=== PATIENT | female | born 1985 | race Caucasian/White ===

== ENCOUNTER 2022-11-09 12:13 | Emergency (ER) | payer OTHER ==
[~2022-11-09] VITALS: Ht 162.6 cm; Wt 65.8 kg
== END 2022-11-09 14:20 | disposition home or self-care (01) ==
LOC: ER 12:13
DX: T67.09XA Other heatstroke and sunstroke, initial encounter (principal); X58.XXXA Exposure to other specified factors, initial encounter; Y93.9 Activity, unspecified; Y92.9 Unspecified place or not applicable; Y99.9 Unspecified external cause status